=== PATIENT | female | born 1985 | race Two or more races ===

== ENCOUNTER 2022-12-02 21:51 | Emergency (ER) | payer SELFPAY ==
[~2022-12-02] VITALS: Ht 180.3 cm; Wt 81.2 kg
--- NOTE | 2022-12-02 22:15 | NUR ---
Dr. Maravilla evaluating patient at bedside. MSE in progress.
[2022-12-02] MEDS ORDERED: ONDANSETRON ODT 4 MG TAB.RAPDIS SL ONE (22:30)
[2022-12-02 22:34] LABS: HEMATOCRIT 30.1 % (31.2-41.9); MEAN CORPUSCULAR HEMOGLOBIN 27.9 uug (24.7-32.8); MEAN CORPUSCULAR VOLUME 87.2 fL (75.5-95.3); PLATELET COUNT (AUTO) 226 K/uL (179-408)
[2022-12-02] MEDS ORDERED: ONDANSETRON ODT 4 MG TAB.RAPDIS ONE (22:43)
[2022-12-02 22:54] LABS: CARBON DIOXIDE 27 mmol/L (21-32); CHLORIDE 106 mmol/L (98-107); CREATININE 0.8 mg/dL (0.6-1.3); POTASSIUM 3.9 mmol/L (3.5-5.1); UREA NITROGEN, BLOOD 21 mg/dL (7-18)
--- NOTE | 2022-12-02 23:00 | NUR ---
Patient aox4, PERRLA, clear speech, no facial droop. Moves all extremities equally. No signs of acute distress noted.
[2022-12-02 23:05] LABS: ALANINE AMINOTRANSFERASE 38 U/L (14-59); ALKALINE PHOSPHATASE 44 U/L (50-136); ASPARTATE AMINOTRANSFERASE 15 U/L (15-37); BILIRUBIN,DIRECT 0.1 mg/dL (0.0-0.2); BILIRUBIN,TOTAL 0.6 mg/dL (0.2-1.0); TOTAL PROTEIN, SERUM 6.3 g/dL (6.4-8.2)
[2022-12-02] MEDS ORDERED: POTA-194 PO (23:28)
[2022-12-02] MEDS ORDERED: FURO-152 PO (23:28)
[2022-12-02] MEDS ORDERED: FUROSEMIDE 20 MG TABLET ONE (23:42)
[2022-12-02] MEDS ORDERED: POTASSIUM CHLORIDE 20 MEQ TAB.PRT.SR ONE (23:43)
[2022-12-02] MEDS ORDERED: POTASSIUM CHLORIDE 20 MEQ TAB.PRT.SR PO ONE (23:45)
[2022-12-02] MEDS ORDERED: FUROSEMIDE 20 MG TABLET PO ONE (23:45)
--- NOTE | 2022-12-02 23:45 | NUR ---
Patient able to swallow K-dur 20MEQ tab PO without difficulty. No signs of aspiration noted.
--- NOTE | 2022-12-02 23:50 | NUR ---
Patient discharged to home in stable condition. Written and verbal after care instructions given. Patient verbalizes understanding of instructions. Stressed follow up or return to ER for worsening s/s. Patient given medication prescription.
[2022-12-03 01:54] VITALS: BP 110/55; TEMP 98.4; O2SAT 97
== END 2022-12-02 23:50 | disposition home or self-care (01) ==
LOC: ER 21:51
DX: R53.1 Weakness (principal); R09.89 Other specified symptoms and signs involving the circulatory and respiratory systems; R60.0 Localized edema; R10.2 Pelvic and perineal pain; R07.89 Other chest pain; Z79.899 Other long term (current) drug therapy
CPT/HCPCS: 36415; 71045; 84484; 85025; 93005; A4663; Q0162